=== PATIENT | female | born 1955 | race Caucasian/White ===

== ENCOUNTER 2016-09-23 17:46 | Emergency (ER) | payer OTHER ==
[~2016-09-23] VITALS: Ht 160 cm; Wt 78.9 kg
[2016-09-23 17:48] VITALS: Ht 160 cm; Wt 78.9 kg
[2016-09-23 20:20] LABS: URINE BLOOD (Dip) POC Trace-lysed (NEGATIVE)
[2016-09-23] MEDS ORDERED: FAMOTIDINE 20 MG INJ IV STA (20:37)
[2016-09-23] MEDS ORDERED: morphine 4 MG/ML VIAL IV STA (20:37)
[2016-09-23] MEDS ORDERED: ONDANSETRON 4 MG INJ IV STA (20:37)
[2016-09-23] MEDS ORDERED: SOD CHLORIDE 0.9% 1,000 ML IV STA (20:37)
[2016-09-23 21:11] LABS: ADD SCAN DIFF NO
[2016-09-23 21:13] LABS: ADD UMIC YES; URINE BILIRUBIN (Dip) NEGATIVE (NEGATIVE); URINE BLOOD (Dip) TRACE (NEGATIVE); URINE COLOR LT. YELLOW (YELLOW); URINE GLUCOSE (Dip) NEGATIVE (NEGATIVE); URINE KETONES (Dip) NEGATIVE (NEGATIVE); URINE LEUKOCYTE ESTERASE (Dip) NEGATIVE (NEGATIVE); URINE NITRITE (Dip) NEGATIVE (NEGATIVE); URINE TOTAL PROTEIN (Dip) NEGATIVE (NEGATIVE); URINE UROBILINOGEN (Dip) 0.2 E.U./dL (0.1-1.0)
[2016-09-23 21:16] LABS: ABNORMAL IP MESSAGE 1; BASOPHILS % 0.4 % (0.0-2.0); EOSINOPHILS # 0.1 10^3/ul (0.0-0.5); EOSINOPHILS % 1.1 % (0.0-7.0); HEMATOCRIT 43.1 % (37.0-47.0); HEMOGLOBIN 14.5 g/dl (12.0-16.0); LYMPHOCYTES # 2.6 10^3/ul (0.8-2.9); LYMPHOCYTES % 35.1 % (15.0-51.0); MEAN CORPUSCULAR HEMOGLOBIN 27.4 pg (29.0-33.0); MEAN CORPUSCULAR HGB CONC 33.6 g/dl (32.0-37.0); MEAN CORPUSCULAR VOLUME 81.5 fl (82.0-101.0); MEAN PLATELET VOLUME 12.4 fl (7.4-10.4); MONOCYTE # 0.5 10^3/ul (0.3-0.9); NEUTROPHIL # 4.2 10^3/ul (1.6-7.5); PLATELET COUNT 347 10^3/UL (140-415); RED BLOOD COUNT 5.29 10^6/ul (4.20-5.40); RED CELL DISTRIBUTION WIDTH 13.8 % (11.5-14.5); WHITE BLOOD COUNT 7.4 10^3/ul (4.8-10.8)
[2016-09-23 21:26] LABS: BACTERIA,URINE FEW; URINE RBCS 0-2 /HPF (0)
--- NOTE | 2016-09-23 21:44 | RADRPT ---
PROCEDURE: CT abdomen and pelvis without contrast. CLINICAL INDICATION: Abdominal pain. Epigastric pain since this morning. Vomiting. TECHNIQUE: CT scan of the abdomen and pelvis without contrast was performed. Sagittal and coronal reformatted images were obtained from the axial source images. CTDI = 11.91 mGy; DLP = 698.46 mGy-c m COMPARISON: None available. FINDINGS: Visualized lower thorax: Minimal lingular subsegmental atelectasis or scarring, the remaining lung parenchyma is clear. There is no evidence for pleural effusion. Liver, gallbladder, pancreas and spleen: The liver is normal and size, contour and attenuation. Th ere is no evidence for a liver mass or ductal dilatation. The gallbladder is unremarkable. No comm on bile duct abnormality is demonstrated. The pancreas is unremarkable. The spleen is normal in si ze. Adrenal glands and genitourinary system: The adrenal glands are normal bilaterally. The kidneys are normal and size, contour and attenuation with no evidence for masses, calculi or hydronephrosis. T he ureters are unremarkable. No urinary bladder abnormality is demonstrated. The uterus is not vis ualized consistent with hysterectomy. Gastrointestinal system: The stomach is normal in caliber without evidence of wall thickening. A n onspecific ileus of the jejunum is present with equivocal enteritis but no evidence of bowel obstruc tion. The appendix and surrounding fat are within the limits of normal. Significant diverticular d isease of the sigmoid colon is seen, few diverticula of the descending colon segment. There is no e vidence for colitis or diverticulitis. Peritoneum, retroperitoneum, lymph nodes and vessels: The abdominal aorta is normal in caliber. The re is mild aortic atherosclerotic calcification. The inferior vena cava is unremarkable. There is no evidence for adenopathy or mass. There is no ascites. No pneumoperitoneum is present. Osseous structures and musculoskeletal findings: There is no fracture, lytic or blastic lesion. Mil d spondylosis and disk narrowing at L1-2 is present. Incidental note is made of Tarlov cysts of S1. No muscular abnormality or soft tissue pathology is present. RPTAT:HJJR IMPRESSION: 1. Findings concerning for enteritis with mild ileus of the jejunum but no evidence of bowel obstru ction. 2. Descending and sigmoid diverticular disease without evidence of diverticulitis. 3. Prior hysterectomy. 4. Mild atherosclerotic calcification of the aorta. Wallace Espino Physician Date Time Electronically viewed and signed by Wallace Espino, Physician on 09/23/2016 21:43 JR/
[2016-09-23 21:51] LABS: ALBUMIN 4.4 g/dl (3.3-4.9)
[2016-09-23 21:52] LABS: POTASSIUM 3.4 mmol/L (3.5-5.1)
[2016-09-23 21:54] LABS: ALBUMIN/GLOBULIN RATIO 1.25; BILIRUBIN,INDIRECT 0.7 mg/dl (0-1.1); BILIRUBIN,TOTAL 0.7 mg/dl (0.2-1.3); CREATININE 0.67 mg/dl (0.44-1.00); TOTAL PROTEIN 7.9 g/dl (6.1-8.1)
[2016-09-23 21:55] LABS: CALCIUM 9.8 mg/dl (8.4-10.2)
--- NOTE | 2016-09-23 22:01 | ERD ---
ER Documentation Chief Complaint Date/Time DATE: 09/23/16 TIME: 22:00 Chief Complaint ap with vomiting since this am, dizziness HPI This is a 60-year-old female who presents to the emergency room for evaluation of abdominal pain, nausea and vomiting since this morning. The patient states that she also has body aches and states that her abdominal pain is in the midportion of the abdomen. She states that she is passing gas and has had one bowel movement today. The patient came to the ER today for evaluation of her abdominal pain which she describes as an achy pain with no radiation. ROS All systems reviewed and are negative except as per history of present illness. PMhx/Soc History of Surgery: Yes (c/s) Anesthesia Reaction: No Hx Miscellaneous Medical Probl: Yes (problem with legs, gastritis) Hx Alcohol Use: No Hx Substance Use: No Hx Tobacco Use: No Smoking Status: Never smoker Physical Exam Vitals Vital Signs Date Time Temp Pulse Resp B/P Pulse Ox O2 Delivery O2 Flow Rate FiO2 09/23/16 17:48 97.7 87 18 140/88 99 Physical Exam INITIAL VITAL SIGNS: Reviewed by me GENERAL: The patient is well developed and appropriate for usual state of health in no apparent distress HEENT: Pupils equal, round, and reactive to light. EOMI. There is no scleral icterus. NECK: C-spine is soft and supple, there is no meningismus. There is no cervical lymphadenopathy. LUNGS: Clear to auscultation bilaterally. There are no rales, wheezes or rhonchi. HEART: Regular rate and rhythm, no murmurs, clicks, rubs or gallops. ABDOMEN: Epigastric tenderness to palpation, otherwise soft, non-tender, non- distended. There are bowel sounds in all four quadrants. No rebound or guarding. EXTREMITIES: There is no peripheral cyanosis or edema. No focal swelling or erythema. NEUROLOGICAL: The patient moves all four extremities with 5/5 strength. Cranial nerves II - XII are intact. Normal gait. Alert and oriented SKIN: There is no apparent rash or petechiae. HEME/LYMPHATIC: There is no evidence of excessive bruising or lymphedema. PSYCHIATRIC: The patient does not appear anxious or depressed. Result Diagram: 09/23/16205409/23/162054 Results 24 hrs Laboratory Tests Test 09/23/16 20:21 09/23/16 20:55 09/23/16 21:00 Bedside Urine pH (LAB) 8.5 Bedside Urine Protein (LAB) Negative Bedside Urine Glucose (UA) Negative Bedside Urine Ketones (LAB) Negative Bedside Urine Blood Trace-lysed Bedside Urine Nitrite (LAB) Negative Bedside Urine Leukocyte Esterase (L Negative White Blood Count 7.410^3/ul Red Blood Count 5.2910^6/ul Hemoglobin 14.5g/dl Hematocrit 43.1% Mean Corpuscular Volume 81.5fl Mean Corpuscular Hemoglobin 27.4pg Mean Corpuscular Hemoglobin Concent 33.6g/dl Red Cell Distribution Width 13.8% Platelet Count 25934^3/UL Mean Platelet Volume 12.4fl Neutrophils % 56.0% Lymphocytes % 35.1% Monocytes % 7.0% Eosinophils % 1.1% Basophils % 0.4% Nucleated Red Blood Cells % 0.0/100WBC Neutrophils # 4.210^3/ul Lymphocytes # 2.610^3/ul Monocytes # 0.510^3/ul Eosinophils # 0.110^3/ul Basophils # 0.010^3/ul Nucleated Red Blood Cells # 0.010^3/ul Sodium Level 142mmol/L Potassium Level 3.4mmol/L Chloride Level 102mmol/L Carbon Dioxide Level 28mmol/L Anion Gap 15 Blood Urea Nitrogen 9mg/dl Creatinine 0.67mg/dl Glucose Level 107mg/dl Calcium Level 9.8mg/dl Total Bilirubin 0.7mg/dl Direct Bilirubin 0.00mg/dl Indirect Bilirubin 0.7mg/dl Aspartate Amino Transf (AST/SGOT) 30IU/L Alanine Aminotransferase (ALT/SGPT) 30IU/L Alkaline Phosphatase 85IU/L Total Protein 7.9g/dl Albumin 4.4g/dl Globulin 3.50g/dl Albumin/Globulin Ratio 1.25 Lipase 155U/L Urine Color LT. YELLOW Urine Clarity CLEAR Urine pH 8.0 Urine Specific Murray <=1.005 Urine Ketones NEGATIVE Urine Nitrite NEGATIVE Urine Bilirubin NEGATIVE Urine Urobilinogen 0.2 E.U./dL Urine Leukocyte Esterase NEGATIVE Urine Microscopic RBC 0-2/HPF Urine Microscopic WBC 0-2/HPF Urine Epithelial Cells FEW Urine Bacteria FEW Urine Hemoglobin TRACE Urine Glucose NEGATIVE% Urine Total Protein NEGATIVE Current Medications Medications (Trade) Dose Ordered Sig/Byron Route PRN Reason Start Time Stop Time Status Last Admin Dose Admin Sodium Chloride (NS) 1,000 ml @ 1,000 mls/hr Q1H STAT IV 09/23/16 20:37 09/23/16 21:36 DC 09/23/16 20:55 Morphine Sulfate (morphine) 4 mg ONCE STAT IV 09/23/16 20:37 09/23/16 20:40 DC 09/23/16 20:55 Ondansetron HCl (Zofran Inj) 4 mg ONCE STAT IV 09/23/16 20:37 09/23/16 20:40 DC 09/23/16 20:54 Famotidine (Pepcid Iv) 20 mg ONCE STAT IV 09/23/16 20:37 09/23/16 20:40 DC 09/23/16 20:55 Procedures/MDM CT abdomen pelvis without: 1. Findings concerning for enteritis with mild ileus of the jejunum but no evidence of bowel obstruction. 2. Descending and sigmoid diverticular disease without evidence of diverticulitis. 3. Prior hysterectomy. 4. Mild atherosclerotic calcification of the aorta. This 60-year-old female presents to the emergency room for evaluation of abdominal pain. The patient did have epigastric tenderness to palpation on my examination. She does state she has a history of gastritis and this does feel similar to previous gastritis. This patient did have lab work drawn including a CT of the abdomen and pelvis which does show enteritis with mild ileus. There is no evidence of bowel obstruction. The patient was given Zofran, Pepcid , and morphine. She says she is feeling much better. She states she is passing gas, she is tolerating a p.o. challenge at this time. This patient will be discharged at this time with a prescription for Zofran and Pepcid. I advised her to return immediately to the emergency room if she develops any vomiting so she can be admitted for ileus. The patient verbalized understanding and is located the plan of care. Departure Diagnosis: Primary Impression: Ileus Additional Impressions: Abdominal pain Nausea & vomiting Condition: Stable ANTHONYHEATHER DOUGLAS September 23, 2016 22:01
[2016-09-23] MEDS ORDERED: ONDA4TAB8 PO (22:07)
[2016-09-23] MEDS ORDERED: FAMO-18 PO (22:07)
[2016-09-23 22:18] VITALS: BP 141/68; PULSE 69; RESP 18; TEMP 97.8
--- NOTE | 2016-09-24 16:26 | HP ---
Date/Time of Note Date/Time of Note DATE: 09/24/16 TIME: 16:23 Assessment/Plan VTE Prophylaxis VTE Prophylaxis Intervention: SCD's Lines/Catheters IV [facility]from [facility] Saline Lock Assessment/Plan Chief Complaint/Hosp Course Assessment and plan 1. Abdominal pain. Patient with clinical picture of that of enteritis. Continue antibiotic regimen. N.p.o. Analgesics as needed. Provide with antiemetics as well as needed 2. Cephalgia. Patient with noted history of migraines. CT scan of the head was negative for any acute intracranial findings. Patient was noted with reported generalized weakness and loss of sight. Follow-up an MRI of the brain. Continue with analgesics. 3. Hypokalemia. Will replete and check level in a.m. 4. Obesity. Weight reduction was advised Admission process 40 minutes Discussed plan of care with Dr. 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 According to report she was initially in the ER one day prior to this admission due to reports of vomiting. At that time she had abdominal scan of her abdomen that did show her to have findings concerning for enteritis with mild ileus of the jejunum. There is also seen descending and sigmoid diverticular disease without evidence of diverticulitis. Patient was reportedly sent home on analgesic medication. She reports she was unable to obtain it due to the pharmacy being closed and her leaving the hospital in the evening time. She did have progressive worsening abdominal pain. She reports she woke up at 6 in the morning with worse pain on the top of her head that caused her to have a momentary loss of site. She also reported having generalized weakness for roughly 20 minutes. His reported her had told her up to prevent her from falling. She denied any loss of consciousness. CT scan of her brain on this admission did show her to have no evidence of acute intracranial findings. There was seen minimal patchy decreased attenuation seen within the white matter suspect reflective of minimal microvascular ischemic changes. CBC unremarkable and patient was only seen with mild hypokalemia on basic metabolic panel. No hypertensive urgency seen. She remains alert and oriented. She does have full strength of her upper and lower extremities. No visual deficit at this time. She still reports having abdominal pain 3 out of 10 intensity more epigastric nonradiating as well as headache diffuse on temples and forehead. We will evaluate her for the aformentiond issues PMH/Family/Social Past Medical History Medical/surgical history 1. Migraine 2. Hysterectomy 2009 Family History Significant Family History: no pertinent family hx Social History Alcohol Use: none Smoking Status: Never smoker Drug Use: none Exam/Review of Systems Vital Signs Vitals Vital Signs Date Time Temp Pulse Resp B/P Pulse Ox O2 Delivery O2 Flow Rate FiO2 09/23/16 22:18 97.8 69 18 141/68 96 Room Air Exam Constitutional: alert, oriented Head: normocephalic Eyes: nl conjunctiva Neck: supple, No jvd Respiratory: clear to auscultation, normal air movement Cardiovascular: regular rate and rhythm Gastrointestinal: soft, tender Musculoskeletal: nl extremities to inspection Extremities: normal pulses Neurological: REPORTS DEVELOPER II-XII intact, nl mental status, nl speech Skin: nl turgor, No rash or lesions Labs Result Diagram: 09/23/16205409/23/162054 JOHANNY NOBLE September 24, 2016 16:26
[2016-09-24] MEDS ORDERED: D5W-0.45 NACL + KCL 20 MEQ 1,000 ML IV SCH (16:30)
[2016-09-24] MEDS ORDERED: SUMATRIPTAN 6 MG/0.5 ML INJ SC ONE (16:30)
--- NOTE | 2016-09-24 18:47 | RADRPT ---
PROCEDURE: MRI Brain without contrast. CLINICAL INDICATION: Neurologic deficit. Possible stroke. TECHNIQUE: MRI of the brain was performed with the following sequences obtained: Sagittal, coronal and axial T1-weighted, axial T2-weighted, axial FLAIR, axial diffusion weighted (with ADC map), and coronal GRE. COMPARISON: CT brain 09/24/2016 FINDINGS: The diffusion sequence is normal with no evidence for acute infarct. No hemorrhage, mass effect or mass lesion is present. The extraaxial spaces are clear of collections. The ventricular system and sulci are normal. Scattered punctate foci of hyperintense FLAIR signal within the subcortical grea ter than periventricular white matter are nonspecific but concerning for a sequela of chronic small vessel ischemic disease. Vasculitis is a differential diagnostic possibility, demyelination is cons idered less likely No signal alteration is present within the brainstem or cerebellum. The fourth ventricle is midline and the craniocervical junction lesion is intact. The area of the sella is normal. The bony calvarium and skull base are intact. The visualized paranasal sinuses and mastoid air cell s are clear. Physiologic flow voids within the internal carotid and vertebral arteries are maintain ed. RPTAT:HJJR IMPRESSION: 1. No evidence of acute infarct or intracranial mass effect. 2. Scattered areas of cerebral subcortical greater than periventricular white matter signal alterat ion on the floor series likely reflects the sequela of small vessel ischemic disease but vasculitis and less likely demyelination are differential diagnostic considerations. Physician Dheeraj Date Time Electronically viewed and signed by Physician Dheeraj on 09/24/2016 18:46 JR/
== END 2016-09-23 22:48 | disposition home or self-care (01) ==
LOC: E/R 17:46
DX: K56.7 Ileus, unspecified (principal); R10.13 Epigastric pain; R11.2 Nausea with vomiting, unspecified
CPT/HCPCS: 36415; 74176; 80053; 81001; 83690; 85025; 96374; 96375; J2270; J2405; J7030; Z7502; Z7610; 70551; 81003

== ENCOUNTER 2016-09-24 07:31 | Inpatient (IN) | payer OTHER ==
[~2016-09-24] VITALS: Ht 162.6 cm; Wt 78.0 kg
[~2016-09-24 07:31] MED LIST: FAMO-18 PO; ONDA4TAB8 PO
[2016-09-24 07:33] VITALS: Ht 162.6 cm; Wt 78.0 kg
[2016-09-24] MEDS ORDERED: ONDANSETRON (ODT) 4 MG TAB ODT STA (07:54)
[2016-09-24] MEDS ORDERED: KETOROLAC 60 MG INJ IM STA (07:54)
[2016-09-24] MEDS ORDERED: FAMOTIDINE 20 MG TAB PO ONE (08:00)
[2016-09-24 08:24] VITALS: TEMP 98.3
[2016-09-24] MEDS ORDERED: morphine 10 MG INJ IM ONE (08:30)
--- NOTE | 2016-09-24 08:56 | RADRPT ---
PROCEDURE: CT Brain without contrast. CLINICAL INDICATION: Acute onset of headache. TECHNIQUE: A CT of the brain was performed on a GE [employer]ed 64-slice CT scanner utilizing axial imaging from the skull base through the vertex without IV contrast. Multiplanar reformatted images were made. Images were reviewed on a PACS workstation. One or more the following does reduction emeli hniques were utilized: Automated exposure control, adjustment of mA/ or kV according to patient's s ize, or use of iterative reconstruction technique. The CTDIvol is 41.9 mGy and the DLP is 720.2 mGy cm. COMPARISON: None FINDINGS: There is no intracranial hemorrhage, mass effect, or midline shift. No extra-axial fluid collection is seen. The ventricles and sulci are normal in size and configuration. There are a few areas of de creased attenuation seen in the deep white matter, nonspecific though perhaps reflective of minimal microvascular ischemic disease. The density the brain is otherwise grossly normal. No acute infarc t is detected. The visualized paranasal sinuses are clear. Incidental note is made of a persistent metopic suture. The osseous structures are otherwise grossly unremarkable. IMPRESSION: 1. No evidence of acute intracranial pathology. 2. Very minimal patchy decreased attenuation is seen within the deep white matter, which is nonspec ific but could reflect very minimal microvascular ischemic change. 3. The brain is otherwise normal in appearance. RPTAT: AA .Agnes Noe MD, Date Time Electronically viewed and signed by .Agnes Noe MD, MD on 09/24/2016 08:55 .H/
--- NOTE | 2016-09-24 09:12 | ERD ---
ER Documentation Chief Complaint Date/Time DATE: 09/24/16 TIME: 09:12 Chief Complaint abd pain , vomiting , headcahe x 1 day , was seen here for same last night HPI 60-year-old female with no significant past medical history presenting to the ER with continued abdominal pain and vomiting. She states that she was here yesterday for the same symptoms. She has associated epigastric aching pain that radiates all over her abdomen, constant, 8 out of 10. No associated fever , chills, diarrhea. She was discharged with a prescription for Pepcid and Zofran, but could not find an open pharmacy last night. She vomited several times throughout the night and developed a headache that is throbbing, nonradiating. She denies any neck pain or stiffness. She endorses generalized weakness but no focal weakness or numbness. No vision disturbance. ROS All systems reviewed and are negative except as per history of present illness. Medications Home Meds Active Scripts Famotidine* (Pepcid*) 20 Mg Tablet, 20 MG PO BID for 7 Days, TAB Prov:HEATHER CRUZ DO 09/23/16 Ondansetron Hcl* (Zofran*) 4 Mg Tablet, 4 MG PO Q8H Y for NAUSEA AND/OR VOMITING , #10 TAB Prov:HEATHER CRUZ DO 09/23/16 Allergies Allergies: Coded Allergies: No Known Allergy (Unverified , 09/24/16) PMhx/Soc Medical and Surgical Hx: pt denies Medical Hx, pt denies Surgical Hx History of Surgery: Yes (c/s) Anesthesia Reaction: No Hx Miscellaneous Medical Probl: Yes (problem with legs, gastritis) Hx Alcohol Use: No Hx Substance Use: No Hx Tobacco Use: No Smoking Status: Never smoker FmHx Family History: No diabetes Physical Exam Vitals Vital Signs Date Time Temp Pulse Resp B/P Pulse Ox O2 Delivery O2 Flow Rate FiO2 09/24/16 11:07 70 14 139/69 100 Room Air 09/24/16 09:14 73 12 141/65 100 Room Air 09/24/16 08:24 98.3 73 18 133/71 100 Room Air 09/24/16 07:33 98.1 90 18 137/74 100 Physical Exam Const: Ill-appearing, nontoxic, in mild distress secondary to nausea, retching Head: Atraumatic Eyes: Normal Conjunctiva, PERRLA, EOMI ENT: Normal External Ears, Nose and Mouth. Neck: Full range of motion.No meningismus. Resp: Clear to auscultation bilaterally Cardio: Regular rate and rhythm, no murmurs Abd: Soft, mild tenderness in the upper abdomen, no rebound or guarding, non distended. Decreased bowel sounds Skin: No petechiae or rashes Back: No midline or flank tenderness Ext: No cyanosis, or edema. 2+ distal pulses. Neur: Awake and alert and oriented 3, cranial nerves intact, strength and sensations intact in all 4 extremities, refusing to walk secondary to her nausea Psych: Normal Mood and Affect Result Diagram: 09/24/16 0948 09/24/16 0948 Results 24 hrs Laboratory Tests Test 09/24/16 09:48 White Blood Count 8.210^3/ul Red Blood Count 5.3410^6/ul Hemoglobin 14.9g/dl Hematocrit 43.8% Mean Corpuscular Volume 82.0fl Mean Corpuscular Hemoglobin 27.9pg Mean Corpuscular Hemoglobin Concent 34.0g/dl Red Cell Distribution Width 13.3% Platelet Count 82710^3/UL Mean Platelet Volume 10.5fl Neutrophils % 66.1% Lymphocytes % 25.7% Monocytes % 5.6% Eosinophils % 2.0% Basophils % 0.4% Nucleated Red Blood Cells % 0.0/100WBC Neutrophils # 5.410^3/ul Lymphocytes # 2.110^3/ul Monocytes # 0.510^3/ul Eosinophils # 0.210^3/ul Basophils # 0.010^3/ul Nucleated Red Blood Cells # 0.010^3/ul Sodium Level 141mmol/L Potassium Level 3.5mmol/L Chloride Level 104mmol/L Carbon Dioxide Level 29mmol/L Anion Gap 12 Blood Urea Nitrogen 9mg/dl Creatinine 0.67mg/dl Glucose Level 108mg/dl Calcium Level 9.8mg/dl Total Bilirubin 0.8mg/dl Direct Bilirubin 0.00mg/dl Indirect Bilirubin 0.8mg/dl Aspartate Amino Transf (AST/SGOT) 38IU/L Alanine Aminotransferase (ALT/SGPT) 36IU/L Alkaline Phosphatase 94IU/L Troponin I < 0.012ng/ml Total Protein 7.9g/dl Albumin 4.4g/dl Globulin 3.50g/dl Albumin/Globulin Ratio 1.25 Lipase 103U/L Current Medications Medications (Trade) Dose Ordered Sig/Byron Route PRN Reason Start Time Stop Time Status Last Admin Dose Admin Ondansetron HCl (Zofran Odt) 8 mg ONCE STAT ODT 09/24/16 07:54 09/24/16 07:55 DC 09/24/16 08:11 Famotidine (Pepcid) 20 mg ONCE ONCE PO 09/24/16 08:00 09/24/16 08:01 DC 09/24/16 08:11 Ketorolac Tromethamine (Toradol) 60 mg ONCE STAT IM 09/24/16 07:54 09/24/16 08:03 DC Morphine Sulfate (morphine) 6 mg ONCE ONCE IM 09/24/16 08:30 09/24/16 08:31 DC 09/24/16 08:12 Ibuprofen 600 mg 600 mg ONCE ONCE PO 09/24/16 09:30 09/24/16 09:31 DC 09/24/16 09:13 Sodium Chloride 1,000 ml @ 1,000 mls/hr Q1H STAT IV 09/24/16 09:34 09/24/16 10:33 DC 09/24/16 09:53 Potassium Chloride/Dextrose/ Sod Cl (D5-1/2ns + KCl 20 Meq) 1,000 ml @ 125 mls/hr Q8H STAT IV 09/24/16 09:34 09/24/16 17:33 09/24/16 11:06 Metoclopramide HCl (Reglan) 10 mg ONCE STAT IV 09/24/16 09:34 09/24/16 09:36 DC 09/24/16 09:53 Ondansetron HCl (Zofran Inj) 4 mg BRIDGE ORDER PRN IV NAUSEA AND/OR VOMITING 09/24/16 11:00 09/25/16 10:59 Acetaminophen (Tylenol Tab) 650 mg ER BRIDGE PRN PO MILD PAIN/FEVER 09/24/16 11:00 09/25/16 10:59 Procedures/MDM EKG: Rate/Rhythm: Normal Sinus Rhythm QRS, ST, T-waves: Poor R-wave progression, no changes consistent w/ acute ischemia Impression: No evidence of ischemia or arrhythmia CT Head: IMPRESSION: 1. No evidence of acute intracranial pathology. 2. Very minimal patchy decreased attenuation is seen within the deep white matter, which is nonspecific but could reflect very minimal microvascular ischemic change. 3. The brain is otherwise normal in appearance. .Agnes Noe MD, MD Date Time Electronically viewed and signed by .Agnes Noe MD, MD on 09/24/2016 08:55 Chest X-ray interpreted by radiology: FINDINGS: The heart and mediastinum are within normal limits. The lungs are clear. There is no pleural effusion or pneumothorax. IMPRESSION: No definite abnormalities are identified. RPTAT:AAJJ Physician Yaron Date Time Electronically viewed and signed by Jamie Salcido Physician on 09/24/2016 10: 57 Labs: CBC within normal limits CMP within normal limits Troponin within normal limits MDM Patient is presenting with similar symptoms she came into the ER for yesterday. She has continued nausea and vomiting with abdominal pain. However she has not been taking the medication she was prescribed upon discharge. Her vitals are stable and she is afebrile. I have a low suspicion for CVA, ACS, esophageal rupture, or acute surgical abdomen. I reviewed her CT from yesterday and it shows that she has evidence of enteritis with ileus with no clear bowel obstruction. I gave her Zofran 8 mg ODT and Pepcid. She was given morphine for her pain. A CT of her head was done and did not show any acute abnormalities. Given these results, my suspicion for subarachnoid hemorrhage is negligible. The patient's symptoms slightly improved and I was going to discharge her. However she did not pass her p.o. challenge and started vomiting multiple times after she was given fluids. At this point, I do not think the patient is stable for discharge as she is not tolerating p.o and Zofran ODT is not helping. IV was placed, IV fluids were started, Reglan 10 mg IV was given. I will admit her for IV hydration and symptom control with bowel rest. Accepting Care Team: Current data and ongoing care discussed. Time: Time of admission Primary Provider: Michael Consulting: none Outstanding Data: none Departure Diagnosis: Primary Impression: Epigastric pain Additional Impressions: Enteritis Headache Headache type: unspecified Headache chronicity pattern: acute headache Intractability: not intractable Qualified Code: R51 - Acute nonintractable headache, unspecified headache type Ileus Condition: Stable Patient Instructions: Nausea and Vomiting-Adult, Headache, Unspecified Referrals: ORLANDO JANSEN (PCP) Additional Instructions: Despus de que usted salga de aqu hoy, VAYA A LA FARMACIA Y OBTENGA stephani medicamentos que le fueron recetados ta por la noche. Vuelva al ER si stephani s ntomas no estn mejorando o empeoran dentro del da siguiente. Awa mayela domo con murillo mdico de cabecera el [facility]. EDWINA ROBLES MD September 24, 2016 09:12
[2016-09-24] MEDS ORDERED: IBUPROFEN 600 MG TAB PO ONE (09:30)
[2016-09-24] MEDS ORDERED: METOCLOPRAMIDE 10 MG INJ IV STA (09:34)
[2016-09-24] MEDS ORDERED: SOD CHLORIDE 0.9% 1,000 ML IV STA (09:34)
[2016-09-24] MEDS ORDERED: D5W-0.45 NACL + KCL 20 MEQ 1,000 ML IV STA (09:34)
[2016-09-24 09:58] LABS: ADD SCAN DIFF NO
[2016-09-24 10:12] LABS: BASOPHILS % 0.4 % (0.0-2.0); EOSINOPHILS # 0.2 10^3/ul (0.0-0.5); HEMATOCRIT 43.8 % (37.0-47.0); HEMOGLOBIN 14.9 g/dl (12.0-16.0); LYMPHOCYTES # 2.1 10^3/ul (0.8-2.9); LYMPHOCYTES % 25.7 % (15.0-51.0); MEAN CORPUSCULAR HEMOGLOBIN 27.9 pg (29.0-33.0); MEAN PLATELET VOLUME 10.5 fl (7.4-10.4); MONOCYTE # 0.5 10^3/ul (0.3-0.9); MONOCYTES % 5.6 % (0.0-11.0); NEUTROPHIL # 5.4 10^3/ul (1.6-7.5); NEUTROPHILS % 66.1 % (39.0-77.0); PLATELET COUNT 269 10^3/UL (140-415); RED BLOOD COUNT 5.34 10^6/ul (4.20-5.40); RED CELL DISTRIBUTION WIDTH 13.3 % (11.5-14.5); WHITE BLOOD COUNT 8.2 10^3/ul (4.8-10.8)
[2016-09-24 10:26] LABS: ALBUMIN 4.4 g/dl (3.3-4.9); ALBUMIN/GLOBULIN RATIO 1.25; BILIRUBIN,INDIRECT 0.8 mg/dl (0-1.1); BILIRUBIN,TOTAL 0.8 mg/dl (0.2-1.3); CALCIUM 9.8 mg/dl (8.4-10.2); CREATININE 0.67 mg/dl (0.44-1.00); POTASSIUM 3.5 mmol/L (3.5-5.1); TOTAL PROTEIN 7.9 g/dl (6.1-8.1)
--- NOTE | 2016-09-24 10:58 | RADRPT ---
PROCEDURE: XR Chest. CLINICAL INDICATION: Epigastric pain, vomiting TECHNIQUE: Single frontal view of the chest was obtained COMPARISON: None FINDINGS: The heart and mediastinum are within normal limits. The lungs are clear. There is no pleural effusion or pneumothorax. IMPRESSION: No definite abnormalities are identified. RPTAT:AAJJ Jamie Salcido Physician Date Time Electronically viewed and signed by Jamie Salcido Physician on 09/24/2016 10:57 /
[2016-09-24] MEDS ORDERED: ACETAMINOPHEN 325 MG TAB PO PRN (11:00)
[2016-09-24] MEDS ORDERED: ONDANSETRON 4 MG INJ IV PRN (11:00)
[2016-09-24 14:30] VITALS: BP 143/71; PULSE 67; RESP 18
[2016-09-24] MEDS ORDERED: MAGNESIUM HYDROXIDE 30ML CUP PO PRN (14:30)
[2016-09-24] MEDS ORDERED: NACL 0.9% 3 ML SYG IV SCH (14:30)
[2016-09-24] MEDS ORDERED: ACETAMINOPHEN 650 MG SUPP PR PRN (14:30)
[2016-09-24] MEDS ORDERED: BISACODYL 10 MG SUPP PR PRN (14:30)
[2016-09-24] MEDS ORDERED: HYDROCODONE/APAP (5/325) TAB PO PRN ×2 (14:30)
[2016-09-24] MEDS ORDERED: DOCUSATE SODIUM 100 MG CAP PO PRN (14:30)
[2016-09-24] MEDS: CIPROFLOXACIN 400MG/D5W 200 ML IVPB SCH (16:22)
[2016-09-24] MEDS: ONDANSETRON 4 MG INJ IV PRN (18:51)
[2016-09-24] MEDS: morphine 2 MG INJ IV PRN (19:50)
[2016-09-24 21:10] VITALS: BP 139/65; RESP 16
[2016-09-24] MEDS: D5W-0.45 NACL + KCL 20 MEQ 1,000 ML IV SCH (21:43)
[2016-09-24] MEDS: HEPARIN 5,000 UNIT/0.5 ML VIAL SC SCH (21:45)
[2016-09-25] MEDS: CIPROFLOXACIN 400MG/D5W 200 ML IVPB SCH ×3 (01:37→20:54)
[2016-09-25] MEDS: morphine 2 MG INJ IV PRN (04:45)
[2016-09-25 05:10] LABS: ADD SCAN DIFF NO
[2016-09-25 05:15] LABS: BASOPHILS % 0.6 % (0.0-2.0); EOSINOPHILS # 0.2 10^3/ul (0.0-0.5); EOSINOPHILS % 3.5 % (0.0-7.0); HEMATOCRIT 43.3 % (37.0-47.0); HEMOGLOBIN 14.4 g/dl (12.0-16.0); LYMPHOCYTES # 1.8 10^3/ul (0.8-2.9); LYMPHOCYTES % 33.4 % (15.0-51.0); MEAN CORPUSCULAR HEMOGLOBIN 27.5 pg (29.0-33.0); MEAN CORPUSCULAR HGB CONC 33.3 g/dl (32.0-37.0); MEAN CORPUSCULAR VOLUME 82.8 fl (82.0-101.0); MEAN PLATELET VOLUME 10.5 fl (7.4-10.4); MONOCYTE # 0.4 10^3/ul (0.3-0.9); MONOCYTES % 6.7 % (0.0-11.0); NEUTROPHILS % 55.4 % (39.0-77.0); PLATELET COUNT 238 10^3/UL (140-415); RED BLOOD COUNT 5.23 10^6/ul (4.20-5.40); RED CELL DISTRIBUTION WIDTH 13.3 % (11.5-14.5); WHITE BLOOD COUNT 5.4 10^3/ul (4.8-10.8)
[2016-09-25] MEDS: PANTOPRAZOLE 40 MG INJ IV SCH (05:16)
[2016-09-25 05:36] LABS: ALBUMIN 3.9 g/dl (3.3-4.9); ALBUMIN/GLOBULIN RATIO 1.25; BILIRUBIN,INDIRECT 0.5 mg/dl (0-1.1); BILIRUBIN,TOTAL 0.5 mg/dl (0.2-1.3); CALCIUM 9.6 mg/dl (8.4-10.2); CREATININE 0.66 mg/dl (0.44-1.00); PHOSPHORUS 3.9 mg/dl (2.5-4.9)
[2016-09-25 05:49] LABS: T3 UPTAKE 32.2 % (23.5-40.5)
[2016-09-25 06:02] LABS: THYROID STIMULATING HORMONE 0.478 MIU/L (0.465-4.680)
[2016-09-25] MEDS: D5W-0.45 NACL + KCL 20 MEQ 1,000 ML IV SCH ×3 (06:44→19:05)
[2016-09-25 08:03] VITALS: BP 129/63; RESP 18
[2016-09-25] MEDS: HEPARIN 5,000 UNIT/0.5 ML VIAL SC SCH ×2 (10:04→20:55)
--- NOTE | 2016-09-25 10:15 | HP ---
Date/Time of Note Date/Time of Note COPY. ORIGINAL H&P WAS PLACED IN PREVIOUS VISIT DATE: 09/24/16 Assessment/Plan VTE Prophylaxis VTE Prophylaxis Intervention: SCD's Lines/Catheters IV Catheter Type (from [facility]): Peripheral IV Assessment/Plan Chief Complaint/Hosp Course 1. Abdominal pain. Patient with clinical picture of that of enteritis. Continue antibiotic regimen. N.p.o. Analgesics as needed. Provide with antiemetics as well as needed 2. Cephalgia. Patient with noted history of migraines. CT scan of the head was negative for any acute intracranial findings. Patient was noted with reported generalized weakness and loss of sight. Follow-up an MRI of the brain. Continue with analgesics. 3. Hypokalemia. Will replete and check level in a.m. 4. Obesity. Weight reduction was advised Admission process 40 minutes Discussed plan of care with Dr. 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 According to report she was initially in the ER one day prior to this admission due to reports of vomiting. At that time she had abdominal scan of her abdomen that did show her to have findings concerning for enteritis with mild ileus of the jejunum. There is also seen descending and sigmoid diverticular disease without evidence of diverticulitis. Patient was reportedly sent home on analgesic medication. She reports she was unable to obtain it due to the pharmacy being closed and her leaving the hospital in the evening time. She did have progressive worsening abdominal pain. She reports she woke up at 6 in the morning with worse pain on the top of her head that caused her to have a momentary loss of site. She also reported having generalized weakness for roughly 20 minutes. His reported her had told her up to prevent her from falling. She denied any loss of consciousness. CT scan of her brain on this admission did show her to have no evidence of acute intracranial findings. There was seen minimal patchy decreased attenuation seen within the white matter suspect reflective of minimal microvascular ischemic changes. CBC unremarkable and patient was only seen with mild hypokalemia on basic metabolic panel. No hypertensive urgency seen. She remains alert and oriented. She does have full strength of her upper and lower extremities. No visual deficit at this time. She still reports having abdominal pain 3 out of 10 intensity more epigastric nonradiating as well as headache diffuse on temples and forehead. We will evaluate her for the aformentiond issues ROS 12 point review of systems obtain an entirely negative except that mentioned in history of present illness PMH/Family/Social Past Medical History MEDICAL/SURGICAL HX 1. Migraines 2. History of hysterectomy in 2009 (reportedly had pelvic tumor) Family History Significant Family History: no pertinent family hx Social History Alcohol Use: none Smoking Status: Never smoker Drug Use: none Exam/Review of Systems Vital Signs Vitals Vital Signs Date Time Temp Pulse Resp B/P Pulse Ox O2 Delivery O2 Flow Rate FiO2 09/25/16 08:03 98.2 75 18 129/63 96 09/24/16 14:30 Room Air Intake and Output 09/24/16 09/24/16 09/25/16 15:00 23:00 07:00 Intake Total 1000 ml 200 ml 1200 ml Balance 1000 ml 200 ml 1200 ml Exam Constitutional: alert Psych: nl mood/affect Head: normocephalic Neck: No jvd Respiratory: clear to auscultation Cardiovascular: regular rate and rhythm Gastrointestinal: soft, tender Musculoskeletal: nl extremities to inspection Extremities: normal pulses Neurological: MEDICAL MANAGEMENT TRAINER II-XII intact, nl mental status, nl speech Skin: nl turgor Labs Result Diagram: 09/25/165 09/25/16414 Medications Medications Current Medications Ciprofloxacin/ Dextrose (Cipro Ivpb) 200 ml @ 200 mls/hr Q12 IVPB Last administered on 09/25/16 01:37; Admin Dose 200 MLS/HR; Start 09/24/16 at 15:00 Ondansetron HCl (Zofran Inj) 4 mg Q6H PRN IV NAUSEA AND/OR VOMITING Last administered on 09/24/16 18:51; Admin Dose 4 MG; Start 09/24/16 at 14:30 Acetaminophen (Tylenol Tab) 650 mg Q6H PRN PO PAIN LEVEL 1-3 OR FEVER; Start at 14:30 Acetaminophen (Tylenol Supp) 650 mg Q6H PRN [place] PAIN LEVEL 1-3 OR FEVER; Start 09/24/16 at 14:30 Acetaminophen/ Hydrocodone Bitart ([place] (5/325)) 1 tab Q6H PRN PO MODERATE PAIN LEVEL 4-6; Start 09/24/16 at 14:30 Acetaminophen/ Hydrocodone Bitart ([place] (5/325)) 2 tab Q6H PRN PO SEVERE PAIN LEVEL 7-10; Start 09/24/16 at 14:30 Morphine Sulfate (morphine) 2 mg Q4H PRN IV SEVERE PAIN LEVEL 7-10 Last administered on 09/25/16 04:45; Admin Dose 2 MG; Start 09/24/16 at 14:30 Docusate Sodium (Colace) 100 mg Q12H PRN PO CONSTIPATION; Start 09/24/16 at 14: 30 Magnesium Hydroxide (Milk Of Mag) 30 ml DAILY PRN PO CONSTIPATION; Start at 14:30 Bisacodyl (Dulcolax Supp) 10 mg DAILY PRN [place] CONSTIPATION; Start 09/24/16 at 14 :30 Pantoprazole (Protonix Iv) 40 mg DAILY@06 IV Last administered on 09/25/16 05: 16; Admin Dose 40 MG; Start 09/25/16 at 06:00 Heparin Sodium (Porcine) 5000 unit 5,000 unit Q12 SC Last administered on 21:45; Admin Dose 5,000 UNIT; Start 09/24/16 at 21:00 Potassium Chloride/Dextrose/ Sod Cl (D5-1/2ns + KCl 20 Meq) 1,000 ml @ 125 mls/ hr Q8H IV Last administered on 09/25/16 06:44; Admin Dose 125 MLS/HR; Start at 20:30 JOHANNY NOBLE September 25, 2016 10:15
[2016-09-25] MEDS ORDERED: SUMATRIPTAN 6 MG/0.5 ML INJ SC ONE (10:30)
[2016-09-25] MEDS: ONDANSETRON 4 MG INJ IV PRN (11:10)
--- NOTE | 2016-09-25 13:21 | PN ---
Date/Time of Note Date/Time of Note DATE: 09/25/16 TIME: 13:16 Assessment/Plan VTE Prophylaxis VTE Prophylaxis Intervention: heparin, SCD's Lines/Catheters [facility]from [facility] Peripheral IV Urinary Cath still in place: No Assessment/Plan Chief Complaint/Hosp Course 1. Abdominal pain. Patient with clinical picture of that of enteritis. Continue antibiotic regimen. N.p.o. Analgesics as needed. Provide with antiemetics as well as needed. Will trial liquid diet 2. Cephalgia. Patient with noted history of migraines. CT scan of the head was negative for any acute intracranial findings. Patient was noted with reported generalized weakness and loss of sight. MRI of the brain is pending. Continue with analgesics. 3. Hypokalemia. Monitor and replete as needed 4. Obesity. Weight reduction was advised Disposition and plan: Try advance diet to clear liquids. Awaiting MRI of the brain. Discussed plan of care with Dr. Burgess Problems: Subjective 24 Hr Interval Summary Free Text/Dictation still reports having headache, but little better today Exam/Review of Systems Vital Signs Vitals Vital Signs Date Time Temp Pulse Resp B/P Pulse Ox O2 Delivery O2 Flow Rate FiO2 09/25/16 08:03 98.2 75 18 129/63 96 09/24/16 14:30 Room Air Intake and Output 09/24/16 09/24/16 09/25/16 15:00 23:00 07:00 Intake Total 1000 ml 200 ml 1200 ml Balance 1000 ml 200 ml 1200 ml Exam Constitutional: alert, oriented Psych: nl mood/affect Head: normocephalic Neck: supple, No jvd Respiratory: clear to auscultation, normal air movement Cardiovascular: regular rate and rhythm Gastrointestinal: soft, tender (minimal) Musculoskeletal: nl extremities to inspection, nl gait and stance Extremities: normal pulses Neurological: STONE SETTER II-XII intact, nl mental status, nl speech Results Result Diagram: 09/25/16 0415 09/25/16 0415 Results 24 hrs Laboratory Tests Test 09/25/16 04:15 White Blood Count 5.4 # Red Blood Count 5.23 Hemoglobin 14.4 Hematocrit 43.3 Mean Corpuscular Volume 82.8 Mean Corpuscular Hemoglobin 27.5 L Mean Corpuscular Hemoglobin Concent 33.3 Red Cell Distribution Width 13.3 Platelet Count 238 Mean Platelet Volume 10.5 H Neutrophils % 55.4 Lymphocytes % 33.4 Monocytes % 6.7 Eosinophils % 3.5 Basophils % 0.6 Nucleated Red Blood Cells % 0.0 Neutrophils # 3.0 Lymphocytes # 1.8 Monocytes # 0.4 Eosinophils # 0.2 Basophils # 0.0 Nucleated Red Blood Cells # 0.0 Sodium Level 138 Potassium Level 4.0 Chloride Level 104 Carbon Dioxide Level 29 Anion Gap 9 Blood Urea Nitrogen 6 L Creatinine 0.66 Glucose Level 103 Hemoglobin A1c 5.8 Calcium Level 9.6 Phosphorus Level 3.9 Magnesium Level 2.0 Total Bilirubin 0.5 Direct Bilirubin 0.00 Indirect Bilirubin 0.5 Aspartate Amino Transf (AST/SGOT) 26 Alanine Aminotransferase (ALT/SGPT) 30 Alkaline Phosphatase 74 Total Protein 7.0 Albumin 3.9 Globulin 3.10 Albumin/Globulin Ratio 1.25 Triglycerides Level 99 Cholesterol Level 181 LDL Cholesterol, Calculated 102 HDL Cholesterol 59 Cholesterol/HDL Ratio 3.0 Thyroid Stimulating Hormone (TSH) 0.478 Free Thyroxine Index 4.06 H Thyroxine (T4) 12.6 H Triiodothyronine (T3) Uptake 32.2 Medications Medications Current Medications Ciprofloxacin/ Dextrose (Cipro Ivpb) 200 ml @ 200 mls/hr Q12 IVPB Last administered on 09/25/16 10:04; Admin Dose 200 MLS/HR; Start 09/24/16 at 15:00 Ondansetron HCl (Zofran Inj) 4 mg Q6H PRN IV NAUSEA AND/OR VOMITING Last administered on 09/25/16 11:10; Admin Dose 4 MG; Start 09/24/16 at 14:30 Acetaminophen (Tylenol Tab) 650 mg Q6H PRN PO PAIN LEVEL 1-3 OR FEVER; Start at 14:30 Acetaminophen (Tylenol Supp) [address] PAIN LEVEL 1-3 OR FEVER; Start 09/24/16 at 14:30 Acetaminophen/ Hydrocodone Bitart ([place] (5/325)) 1 tab Q6H PRN PO MODERATE PAIN LEVEL 4-6; Start 09/24/16 at 14:30 Acetaminophen/ Hydrocodone Bitart ([place] (5/325)) 2 tab Q6H PRN PO SEVERE PAIN LEVEL 7-10; Start 09/24/16 at 14:30 Morphine Sulfate (morphine) 2 mg Q4H PRN IV SEVERE PAIN LEVEL 7-10 Last administered on 09/25/16 04:45; Admin Dose 2 MG; Start 09/24/16 at 14:30 Docusate Sodium (Colace) 100 mg Q12H PRN PO CONSTIPATION; Start 09/24/16 at 14: 30 Magnesium Hydroxide (Milk Of Mag) 30 ml DAILY PRN PO CONSTIPATION; Start at 14:30 Bisacodyl (Dulcolax Supp) [address] CONSTIPATION; Start 09/24/16 at 14 :30 Pantoprazole (Protonix Iv) 40 mg DAILY@06 IV Last administered on 09/25/16 05: 16; Admin Dose 40 MG; Start 09/25/16 at 06:00 Heparin Sodium (Porcine) 5000 unit 5,000 unit Q12 SC Last administered on 10:04; Admin Dose 5,000 UNIT; Start 09/24/16 at 21:00 Potassium Chloride/Dextrose/ Sod Cl (D5-1/2ns + KCl 20 Meq) 1,000 ml @ 125 mls/ hr Q8H IV Last administered on 09/25/16 06:44; Admin Dose 125 MLS/HR; Start at 20:30 JOHANNY NOBLE September 25, 2016 13:21
[2016-09-25 20:48] VITALS: BP 136/61; RESP 17
[2016-09-26] MEDS: ACETAMINOPHEN 325 MG TAB PO PRN ×2 (00:08→08:10)
[2016-09-26 05:10] LABS: ADD SCAN DIFF NO
[2016-09-26 05:20] LABS: BASOPHILS % 0.5 % (0.0-2.0); EOSINOPHILS # 0.3 10^3/ul (0.0-0.5); EOSINOPHILS % 4.9 % (0.0-7.0); HEMATOCRIT 41.3 % (37.0-47.0); HEMOGLOBIN 13.9 g/dl (12.0-16.0); LYMPHOCYTES # 2.3 10^3/ul (0.8-2.9); LYMPHOCYTES % 41.7 % (15.0-51.0); MEAN CORPUSCULAR HEMOGLOBIN 27.7 pg (29.0-33.0); MEAN CORPUSCULAR HGB CONC 33.7 g/dl (32.0-37.0); MEAN CORPUSCULAR VOLUME 82.4 fl (82.0-101.0); MEAN PLATELET VOLUME 10.6 fl (7.4-10.4); MONOCYTE # 0.4 10^3/ul (0.3-0.9); MONOCYTES % 6.9 % (0.0-11.0); NEUTROPHIL # 2.5 10^3/ul (1.6-7.5); NEUTROPHILS % 45.8 % (39.0-77.0); PLATELET COUNT 218 10^3/UL (140-415); RED BLOOD COUNT 5.01 10^6/ul (4.20-5.40); RED CELL DISTRIBUTION WIDTH 13.4 % (11.5-14.5); WHITE BLOOD COUNT 5.5 10^3/ul (4.8-10.8)
[2016-09-26] MEDS: PANTOPRAZOLE 40 MG INJ IV SCH (05:39)
[2016-09-26 05:43] LABS: CREATININE 0.65 mg/dl (0.44-1.00); POTASSIUM 3.9 mmol/L (3.5-5.1)
[2016-09-26] MEDS: D5W-0.45 NACL + KCL 20 MEQ 1,000 ML IV SCH ×2 (07:01→11:45)
[2016-09-26 08:05] VITALS: BP 121/71; RESP 16
[2016-09-26] MEDS: CIPROFLOXACIN 400MG/D5W 200 ML IVPB SCH (08:10)
[2016-09-26] MEDS: HEPARIN 5,000 UNIT/0.5 ML VIAL SC SCH (08:11)
--- NOTE | 2016-09-26 13:21 | DS ---
Date/Time of Note Date/Time of Note DATE: 09/26/16 TIME: 13:18 Discharge Summary Admission/Discharge Info Admit Date/Time September 24, 2016 at 13:48 Discharge Date/Time Final Diagnosis 1. Acute gastroenteritis, improved Patient Condition: Stable Hospital Course 60 years old female with no significant PMH came in with upper abdominal pain along with nausea and vomiting. No diarrhea, no fever or chills. Physical exam with upper abdominal tenderness. Labs are unremarkable. Patient's symptoms resolved. She is discharged with stable condition and follow up with PCP in 1-2 weeks. Home Meds Active Scripts Famotidine* (Pepcid*) 20 Mg Tablet, 20 MG PO BID for 7 Days, TAB Prov:HEATHER CRUZ DO 09/23/16 Ondansetron Hcl* (Zofran*) 4 Mg Tablet, 4 MG PO Q8H Y for NAUSEA AND/OR VOMITING , #10 TAB Prov:HEATHER CRUZ DO 09/23/16 Follow-up Plan PCP in one week Primary Care Provider Gt Bee Pending Labs Laboratory Tests Test 09/26/16 04:26 White Blood Count 5.510^3/ul (4.8-10.8) Red Blood Count 5.0110^6/ul (4.20-5.40) Hemoglobin 13.9g/dl (12.0-16.0) Hematocrit 41.3% (37.0-47.0) Mean Corpuscular Volume 82.4fl (82.0-101.0) Mean Corpuscular Hemoglobin 27.7pg (29.0-33.0) Mean Corpuscular Hemoglobin Concent 33.7g/dl (32.0-37.0) Red Cell Distribution Width 13.4% (11.5-14.5) Platelet Count 68232^3/UL (140-415) Mean Platelet Volume 10.6fl (7.4-10.4) Neutrophils % 45.8% (39.0-77.0) Lymphocytes % 41.7% (15.0-51.0) Monocytes % 6.9% (0.0-11.0) Eosinophils % 4.9% (0.0-7.0) Basophils % 0.5% (0.0-2.0) Nucleated Red Blood Cells % 0.0/100WBC (0.0-0.0) Neutrophils # 2.510^3/ul (1.6-7.5) Lymphocytes # 2.310^3/ul (0.8-2.9) Monocytes # 0.410^3/ul (0.3-0.9) Eosinophils # 0.310^3/ul (0.0-0.5) Basophils # 0.010^3/ul (0.0-0.1) Nucleated Red Blood Cells # 0.010^3/ul (0.0-0.0) Sodium Level 138mmol/L (135-144) Potassium Level 3.9mmol/L (3.5-5.1) Chloride Level 107mmol/L (97-110) Carbon Dioxide Level 26mmol/L (21-31) Anion Gap 9 (8-16) Blood Urea Nitrogen 6mg/dl (7-20) Creatinine 0.65mg/dl (0.44-1.00) Glucose Level 118mg/dl (70-220) Calcium Level 9.0mg/dl (8.4-10.2) ASHLEIGH PRIETO MD September 26, 2016 13:21
[2016-09-27] MEDS ORDERED: PANTOPRAZOLE (EC) 40 MG TAB PO SCH (06:00)
== END 2016-09-26 15:24 | disposition home or self-care (01) | DRG 392 ==
LOC: E/R 07:31 → PP2 13:48
PROVIDERS: ADMIT Internal Medicine; ATTEND Internal Medicine
DX: K52.9 Noninfective gastroenteritis and colitis, unspecified (principal); E87.6 Hypokalemia; G43.909 Migraine, unspecified, not intractable, without status migrainosus; E66.9 Obesity, unspecified; Z68.29 Body mass index [BMI] 29.0-29.9, adult
CPT/HCPCS: 36415; 70450; 71010; 80048; 80053; 80061; 83036; 83690; 83735; 84100; 84436; 84443; 84479; 84484; 85025; 93005; 96361; 96372; 96374; C9113; J0744; J1644; J2270; J2405; J2765; J3030; J3480; J7030

== ENCOUNTER 2017-04-03 12:03 | Emergency (ER) | payer OTHER ==
[~2017-04-03] VITALS: Ht 165.1 cm; Wt 80.9 kg
[~2017-04-03 12:03] MED LIST changes: -FAMO-18 PO; +FAMO-96 PO
[2017-04-03 12:09] VITALS: Ht 165.1 cm; Wt 80.9 kg
[2017-04-03] MEDS ORDERED: LIDOCAINE/MYLANTA 40 ML BTL PO STA (12:47)
[2017-04-03] MEDS ORDERED: KETOROLAC 15 MG INJ IV STA (12:47)
[2017-04-03] MEDS ORDERED: SOD CHLORIDE 0.9% 1,000 ML IV STA (12:47)
[2017-04-03] MEDS ORDERED: FAMOTIDINE 20 MG TAB PO STA (12:47)
[2017-04-03] MEDS ORDERED: METOCLOPRAMIDE 10 MG INJ IV ONE (13:00)
[2017-04-03] MEDS ORDERED: DIPHENHYDRAMINE 50 MG INJ IV ONE (13:00)
[2017-04-03 13:45] LABS: BASOPHILS % 0.5 % (0.0-2.0); EOSINOPHILS % 0.2 % (0.0-7.0); HEMATOCRIT 41.6 % (37.0-47.0); HEMOGLOBIN 14.1 g/dl (12.0-16.0); LYMPHOCYTES # 1.9 10^3/ul (0.8-2.9); LYMPHOCYTES % 22.2 % (15.0-51.0); MEAN CORPUSCULAR HEMOGLOBIN 27.6 pg (29.0-33.0); MEAN CORPUSCULAR HGB CONC 33.9 g/dl (32.0-37.0); MEAN CORPUSCULAR VOLUME 81.4 fl (82.0-101.0); MONOCYTE # 0.4 10^3/ul (0.3-0.9); MONOCYTES % 4.4 % (0.0-11.0); NEUTROPHIL # 6.1 10^3/ul (1.6-7.5); NEUTROPHILS % 72.3 % (39.0-77.0); PLATELET COUNT 292 10^3/UL (140-415); RED BLOOD COUNT 5.11 10^6/ul (4.20-5.40); RED CELL DISTRIBUTION WIDTH 12.4 % (11.5-14.5); WHITE BLOOD COUNT 8.4 10^3/ul (4.8-10.8)
[2017-04-03 13:48] LABS: ADD UMIC YES; UR ASCORBIC ACID NEGATIVE (NEGATIVE); UR BILIRUBIN (Dip) NEGATIVE (NEGATIVE); UR BLOOD (Dip) 1+ mg/dL (NEGATIVE); UR CLARITY SLIGHTLY CLOUDY (CLEAR); UR COLOR YELLOW (YELLOW); UR GLUCOSE (Dip) NEGATIVE (NEGATIVE); UR KETONES (Dip) TRACE mg/dL (NEGATIVE); UR LEUKOCYTE ESTERASE (Dip) 1+ Leu/ul (NEGATIVE); UR MUCUS FEW /HPF (NONE SEEN); UR NITRITE (Dip) NEGATIVE (NEGATIVE); UR RBC 2 /HPF (0-5); UR SPECIFIC GRAVITY (Dip) 1.016 (1.003-1.030); UR SQUAMOUS EPITHELIAL CELL FEW /HPF (FEW); UR TOTAL PROTEIN (Dip) 2+ mg/dl (NEGATIVE); UR UROBILINOGEN (Dip) NEGATIVE (NEGATIVE)
--- NOTE | 2017-04-03 14:02 | ERD ---
ER Documentation Chief Complaint Chief Complaint epigastric pain and NAUSEA SINCE 0400 HPI This is a 61-year-old female with a history of gastritis on Pepcid, migraines and vertigo who is presenting with several hours of a left-sided stabbing throbbing pulsating headache most severe behind her left eye with photophobia, phonophobia, nausea and one episode of nonbilious nonbloody vomiting this morning. The patient also endorses feeling dizzy, worse when looking to the left. With the vomiting, she also endorses epigastric discomfort. The patient denies feeling sick recently. The patient denies fever or chills. The patient has had no vision changes. The patient does not endorse neck or back pain. The patient has had no chest pain or shortness of breath or trouble breathing. The patient denies changes to bowel movements or urination. The patient did not eat anything out of the ordinary. The patient has had no focal deficits. The patient has had no weakness or numbness or tingling to the face or extremities. ROS All systems reviewed and are negative except as per history of present illness. Medications Home Meds Discontinued Scripts Famotidine* (Pepcid*) 20 Mg Tablet, 20 MG PO BID for 7 Days, TAB Prov:HEATHER CRUZ DO 09/23/16 Ondansetron Hcl* (Zofran*) 4 Mg Tablet, 4 MG PO Q8H Y for NAUSEA AND/OR VOMITING , #10 TAB Prov:HEATHER CRUZ DO 09/23/16 Allergies Allergies: Coded Allergies: No Known Allergy (Unverified , 04/03/17) PMhx/Soc History of Surgery: No Anesthesia Reaction: No Hx Neurological Disorder: Yes (Migraines, Vertigo) Hx Respiratory Disorders: No Hx Cardiac Disorders: No Hx Psychiatric Problems: No Hx Miscellaneous Medical Probl: Yes (Arthritis, Gastritis) Hx Alcohol Use: No Hx Substance Use: No Hx Tobacco Use: No Smoking Status: Never smoker FmHx Family History: No diabetes Physical Exam Vitals Vital Signs Date Time Temp Pulse Resp B/P Pulse Ox O2 Delivery O2 Flow Rate FiO2 04/03/17 12:09 97.9 95 18 141/73 98 Physical Exam Const: No apparent distress, well-developed, well-nourished Head: Normocephalic, Atraumatic Eyes: Normal Conjunctiva. Extraocular movements intact. Pupils equal, round and reactive to light ENT: Normal External Ears, Nose and Mouth. Neck: Full range of motion. No meningismus. Resp: Clear to auscultation bilaterally, No wheezes, rales or rhonchi Cardio: Regular rate and rhythm. No murmurs, rubs or gallops Abd: Soft, non distended. + Epigastric tenderness. Normal bowel sounds Skin: No petechiae or rashes Back: No midline tenderness. No CVA tenderness Ext: No cyanosis, or edema Neur: Awake and alert, oriented 4. Cranial nerves intact. No facial droop. Normal strength, sensation and coordination. Psych: Normal Mood and Affect Result Diagram: 04/03/17 1313 04/03/17 1313 Results 24 hrs Laboratory Tests Test 04/03/17 12:59 04/03/17 13:13 Urine Color YELLOW Urine Clarity SLIGHTLY CLOUDY Urine pH 6.0 Urine Specific [place] 1.016 Urine Ketones TRACEmg/dL Urine Nitrite NEGATIVEmg/dL Urine Bilirubin NEGATIVEmg/dL Urine Urobilinogen NEGATIVEmg/dL Urine Leukocyte Esterase 1+Felipe/ul Urine Microscopic RBC 2/HPF Urine Microscopic WBC 5/HPF Urine Squamous Epithelial Cells FEW/HPF Urine Mucus FEW/HPF Urine Hemoglobin 1+mg/dL Urine Glucose NEGATIVEmg/dL Urine Total Protein 2+mg/dl White Blood Count 8.410^3/ul Red Blood Count 5.1110^6/ul Hemoglobin 14.1g/dl Hematocrit 41.6% Mean Corpuscular Volume 81.4fl Mean Corpuscular Hemoglobin 27.6pg Mean Corpuscular Hemoglobin Concent 33.9g/dl Red Cell Distribution Width 12.4% Platelet Count 40104^3/UL Mean Platelet Volume 11.0fl Neutrophils % 72.3% Lymphocytes % 22.2% Monocytes % 4.4% Eosinophils % 0.2% Basophils % 0.5% Nucleated Red Blood Cells % 0.0/100WBC Neutrophils # 6.110^3/ul Lymphocytes # 1.910^3/ul Monocytes # 0.410^3/ul Eosinophils # 0.010^3/ul Basophils # 0.010^3/ul Nucleated Red Blood Cells # 0.010^3/ul Sodium Level 144mmol/L Potassium Level 3.7mmol/L Chloride Level 105mmol/L Carbon Dioxide Level 23mmol/L Anion Gap 20 Blood Urea Nitrogen 9mg/dl Creatinine 0.63mg/dl Glucose Level 145mg/dl Calcium Level 9.3mg/dl Total Bilirubin 0.4mg/dl Direct Bilirubin 0.00mg/dl Indirect Bilirubin 0.4mg/dl Aspartate Amino Transf (AST/SGOT) 36IU/L Alanine Aminotransferase (ALT/SGPT) 26IU/L Alkaline Phosphatase 99IU/L Total Protein 7.9g/dl Albumin 4.4g/dl Globulin 3.50g/dl Albumin/Globulin Ratio 1.25 Lipase 101U/L Current Medications Medications (Trade) Dose Ordered Sig/[place]ron Route PRN Reason Start Time Stop Time Status Last Admin Dose Admin Sodium Chloride (NS) 1,000 ml @ 1,000 mls/hr Q1H STAT IV 04/03/17 12:47 04/03/17 13:46 DC 04/03/17 13:11 Famotidine (Pepcid) 20 mg ONCE STAT PO 04/03/17 12:47 04/03/17 12:51 DC 04/03/17 13:12 Miscellaneous Medication (Gi Cocktail (2)) 40 ml ONCE STAT PO 04/03/17 12:47 04/03/17 12:51 DC 04/03/17 13:12 Ketorolac Tromethamine (Toradol) 15 mg ONCE STAT IV 04/03/17 12:47 04/03/17 12:51 DC 04/03/17 13:12 Metoclopramide HCl (Reglan) 10 mg ONCE ONCE IV 04/03/17 13:00 04/03/17 13:01 DC 04/03/17 13:12 Diphenhydramine HCl (Benadryl) 25 mg ONCE ONCE IV 04/03/17 13:00 04/03/17 13:01 DC 04/03/17 13:12 Procedures/MDM MDM The patient's presentation warrants further investigation. The patient has signs and symptoms consistent with a migraine. That said, she also has a history of gastritis and has epigastric pain as well. The patient be given medications for a migraine as well as gastritis. Abdominal workup will be performed. EKG will also be completed to evaluate for possible cardiac etiology , though the my suspicion is low as she does not endorse any chest pain or trouble breathing and does not have cardiac risk factors. LABS The patient's blood work was obtained and reviewed. The patient's CBC shows no leukocytosis and no left shift. The patient is afebrile and does not appear systemically ill. I do not suspect a systemic infection. The patient is not anemic today. The patient's platelet count is unremarkable. The patient's CMP shows no signs of metabolic or electrolyte emergencies. The patient has unremarkable renal and hepatic function testing. The patient's lipase is unremarkable. EKG EKG read by me: Rate/Rhythm: Regular rate and rhythm at a rate of 89 Intervals: Normal [place]: Left shifted Impression: Low voltage, but no evidence of acute ischemia or arrhythmia TREATMENT/DISPOSITION Patient was given IV fluids, Toradol, Reglan and Benadryl, with significant improvement of her headache. The patient's physical exam is reassuring. She has no neurologic deficits. I do not suspect a neurologic etiology. The patient did endorse some vertiginous symptoms, but I did not actually see any nystagmus on exam. I have higher suspicion for migraine. The patient did have a CT scan of the head in September of this year that did not reveal any acute pathology. I do not feel that a CT scan today is required. The patient was also given Pepcid and a GI cocktail for her epigastric discomfort. This resolved her epigastric discomfort as well. I have low suspicion for a cardiopulmonary etiology of her symptoms. I have low suspicion for AAA. I have low suspicion for aortic dissection. I do not believe that she is having an acute coronary syndrome. She has no symptoms consistent with pneumonia. She does not have exam findings consistent with cholecystitis or appendicitis. I have low suspicion for pancreatitis, especially in the setting of a normal lipase. The patient may continue to utilize Pepcid as an outpatient. At this time, I feel that the patient stable for discharge. The patient will need follow-up with his primary care physician in 2-3 days. The patient will be given strict precautions with which to return to the emergency department. The patient's blood pressure was elevated at greater than 120/80 while in the emergency department. The patient was otherwise stable with no evidence of hypertensive urgency or emergency or end organ damage. The patient does not require admission for blood pressure control. I have discussed with the patient the risks of hypertension. I have advised the patient to follow up with the primary care physician for outpatient monitoring and treatment for hypertension in 2-3 days. I have instructed the patient to return to the ER for any new or worsening symptoms including chest pain, shortness of breath, headache, blurred vision, confusion, nausea, vomiting or LOC. Disclaimer: Inadvertent spelling and grammatical errors are likely due to EHR/ dictation software use and do not reflect on the overall quality of patient care. Note that the electronic time recorded on this note does not necessarily reflect the actual time of the patient encounter. Departure Diagnosis: Primary Impression: Migraine Migraine type: unspecified Status migrainosus presence: without status migrainosus Intractability: not intractable Qualified Code: G43.909 - Migraine without status migrainosus, not intractable, unspecified migraine type Additional Impressions: Epigastric pain Nausea & vomiting Vomiting type: unspecified Vomiting Intractability: non-intractable Qualified Code: R11.2 - Non-intractable vomiting with nausea, unspecified vomiting type Condition: JOSÉ Bray MD Apr 03, 2017 14:02
[2017-04-03 14:05] LABS: ALBUMIN 4.4 g/dl (3.3-4.9); ALBUMIN/GLOBULIN RATIO 1.25; BILIRUBIN,INDIRECT 0.4 mg/dl (0-1.1); BILIRUBIN,TOTAL 0.4 mg/dl (0.2-1.3); CALCIUM 9.3 mg/dl (8.4-10.2); CREATININE 0.63 mg/dl (0.44-1.00); POTASSIUM 3.7 mmol/L (3.5-5.1); TOTAL PROTEIN 7.9 g/dl (6.1-8.1)
[2017-04-03 14:52] VITALS: BP 140/78; PULSE 73; RESP 17
== END 2017-04-03 15:52 | disposition home or self-care (01) ==
LOC: E/R 12:03
DX: G43.909 Migraine, unspecified, not intractable, without status migrainosus (principal); R11.2 Nausea with vomiting, unspecified
CPT/HCPCS: 36415; 80053; 81001; 83690; 85025; 87086; 93005; 96374; 96375; J1200; J1885; J2765; J7030; Z7502; Z7610

== ENCOUNTER 2017-06-10 02:57 | Emergency (ER) | END 2017-06-10 05:21 | disposition home or self-care (01) ==

== ENCOUNTER 2018-07-15 09:15 | Emergency (ER) | payer OTHER ==
[~2018-07-15] VITALS: Ht 167.6 cm; Wt 81.1 kg
[~2018-07-15 09:15] MED LIST changes: +AZIT250T PO; -FAMO-96 PO; +GUAI-637 PO; +IBUP-1542 PO; -ONDA4TAB8 PO; +TYL500 PO
[2018-07-15 09:18] VITALS: Ht 167.6 cm; Wt 81.1 kg
[2018-07-15] MEDS ORDERED: IBUP800T48 PO (10:37)
[2018-07-15] MEDS ORDERED: TRAM50TA2 PO (10:37)
--- NOTE | 2018-07-15 10:41 | ERD ---
ER Documentation Chief Complaint Chief Complaint right knee pain & swelling upon waking denies injury. HPI Patient is a 62-year-old female who presents with bilateral knee pain worse on the right side after she had a mechanical fall where she fell onto her knees 2 days ago. She is able to ambulate. She takes tramadol at home which she states does help her with the pain. No numbness or tingling. No fevers. States her knees feel swollen but denies any redness. ROS All systems reviewed and are negative except as per history of present illness. Medications Home Meds Active Scripts Tramadol HCl (Tramadol HCl) 50 Mg Tablet, 50 MG PO Q4 PRN for PAIN, #20 TAB Prov:ARLETH ARZATE PA-C 07/15/18 Ibuprofen* (Motrin*) 800 Mg Tab, 800 MG PO Q6, #30 TAB Prov:ARLETH ARZATE PA-C 07/15/18 Ibuprofen* (Motrin*) 600 Mg Tab, 600 MG PO Q6, #30 TAB Prov:CLAUDE MICHAUD 06/10/17 Acetaminophen* (Tylenol*) 500 Mg Tab, 1000 MG PO Q8H PRN for PAIN AND OR ELEVATED TEMP for 3 Days, TAB Prov:CLAUDE MICHAUD 06/10/17 Guaifenesin* (Robitussin*) 100 Mg/5 Ml Syrup, 200 MG PO Q6H PRN for COUGH for 3 Days, ML Prov:CLAUDE MICHAUD 06/10/17 Azithromycin* (Zithromax*) 250 Mg Tablet, 250 MG PO .ZPACK DIRECTED, #6 TAB TAKE 500 MG (2 TABS) THE FIRST DAY THEN 250 MG (1 TAB) DAYS 2-5 Prov:CLAUDE MICHAUD 06/10/17 Allergies Allergies: Coded Allergies: No Known Allergy (Unverified , 07/15/18) PMhx/Soc History of Surgery: No Anesthesia Reaction: No Hx Neurological Disorder: Yes (Migraines, Vertigo) Hx Respiratory Disorders: No Hx Cardiac Disorders: No Hx Psychiatric Problems: No Hx Miscellaneous Medical Probl: Yes (Arthritis, Gastritis) Hx Alcohol Use: No Hx Substance Use: No Hx Tobacco Use: No Smoking Status: Never smoker FmHx Family History: No diabetes Physical Exam Vitals Vital Signs Date Temp Pulse Resp B/P (MAP) Pulse Ox O2 O2 Flow FiO2 Time Delivery Rate 3/3/19 98.4 91 18 176/84 97 09:18 (114) Physical Exam INITIAL VITAL SIGNS: Reviewed by me GENERAL: Awake, alert and oriented x 4, well appearing, nontoxic, speaking in full sentences. No acute distress HEAD: Atraumatic NECK: Supple. No masses. Full range of motion. No meningismus. No midline tenderness. EYES: EOMI. PERRL. RESPIRATORY: Clear to auscultation bilaterally. Symmetric chest wall rise. No wheezing or rales. No accessory muscle use. CV: Regular rate and rhythm. No murmurs, rubs, or gallops. Knees: Bilateral knees have no erythema, 1+ edema bilaterally, full range of motion, sensation to light touch is intact, no bony abnormalities, nontender Procedures/MDM Patient has knee pain after fall that occurred 2 days ago. She is ambulatory and neurovascularly intact. X-rays are negative for fracture dislocation. She is discharged with prescription for ibuprofen and tramadol. Patient counseled regarding my diagnostic impression and care plan. Prior to discharge all questions answered. Pt agrees with treatment plan and understands strict return precautions. Pt is instructed to follow up with primary care provider within 24- 48 hours. Precautionary instructions provided including instructions to return to the ER if not improving or for any worsening or changing symptoms or concerns. Departure Diagnosis: Primary Impression: Knee pain Condition: Stable Patient Instructions: Knee Pain, Uncertain Cause Additional Instructions: Llame al doctor RONI y neftali mayela ELIJAH PARA DENTRO DE 1-2 RODRIGEZ.Dgale a la secretaria que nosotros le instruimos hacer esta elijah.Avise o llame si murillo condicin se empeora antes de la elijah. Regresa aqui si peor o no mejor. ARLETH ARZATE PA-C Jul 15, 2018 10:40
== END 2018-07-15 11:03 | disposition home or self-care (01) ==
LOC: FTE 09:15
DX: M25.561 Pain in right knee (principal)
CPT/HCPCS: 73562; Z7502